=== PATIENT | female | born 1950 | race Caucasian/White ===

== ENCOUNTER → 2018-01-14 12:33 | Outpatient (CLI) | payer OTHER ==
[~2018-01-14 12:33] MED LIST: ALL DAY ALLERGY10 M3 PO; OSTERA TABLET1 EACH PO; [UNRECOGNIZED DRUG - OTHER] PO; [UNRECOGNIZED DRUG - OTHER] PO
== END | disposition home or self-care (01) ==
LOC: LAB 12:33
DX: N39.0 Urinary tract infection, site not specified (principal); R82.79 Other abnormal findings on microbiological examination of urine

== ENCOUNTER 2021-12-15 07:45 | Inpatient (IN) | payer OTHER ==
[~2021-12-15] VITALS: Ht 172.7 cm; Wt 83.9 kg
[2021-12-15] MEDS ORDERED: PROTONIX20 MG PO (09:44)
[2021-12-15] MEDS ORDERED: CREST PO (09:44)
[2021-12-15] MEDS ORDERED: ACTONEL150 MG PO (09:44)
[2021-12-18] MEDS ORDERED: DICLOFENAC POTA50 MG (09:37)
[2021-12-18] MEDS ORDERED: DICLOFENAC SOD100 GM (09:38)
[2021-12-18] MEDS ORDERED: TIZANIDINE HCL2 M1 (09:38)
[2021-12-18] MEDS ORDERED: ROSUVASTATIN CA10 MG (09:38)
[2021-12-20] MEDS ORDERED: OXYC1TAB9 PO (06:22)
[2021-12-20] MEDS ORDERED: BACTRIM DS TAB1 EACH PO (06:22)
[2021-12-20] MEDS ORDERED: XARELTO10 MG PO (06:22)
[2021-12-20] MEDS ORDERED: INTEGRA PLUS C1 EACH PO (06:22)
== END 2021-12-20 18:10 | disposition home or self-care (01) | DRG 470 ==
LOC: ADM 07:45 → EDSTATUS 07:45 → SURG 12-18 07:45 → O/R 12-18 07:51 → SURG 12-18 13:48
PROVIDERS: ADMIT Orthopaedic Surgery Sports Medicine; ATTEND Orthopaedic Surgery Sports Medicine
PROC: 0SRD0J9 Replacement of Left Knee Joint with Synthetic Substitute, Cemented, Open Approach (ICD-10-PCS; principal; 2021-12-18 19:45)
DX: M17.12 Unilateral primary osteoarthritis, left knee (principal); Z96.652 Presence of left artificial knee joint; Z20.822 Contact with and (suspected) exposure to COVID-19